=== PATIENT | female | born 2000 | race Asian ===

== ENCOUNTER 2020-11-16 12:24 | Day surgery (SDC) | payer OTHER ==
[~2020-11-16] VITALS: Ht 157.5 cm; Wt 63.5 kg
--- NOTE | 2020-11-16 14:01 | NUR ---
Ambulatory in Day Surgery History, Chart, Medications and Allergies reviewed before start of procedure. Lungs clear T/O to Auscultation. Patient confirms NPO status and agrees with scheduled surgery. PREG TEST NEGATIVE.
--- NOTE | 2020-11-16 16:00 | NUR ---
11/16/20 1600 G[address]i NO ANTIBIOTICS ORDERED.
--- NOTE | 2020-11-16 17:21 | NUR ---
Dressing to procedure site clean, dry, intact with no visible drainage, swelling, erythema or bruising noted.
--- NOTE | 2020-11-16 17:55 | NUR ---
Discharge instructions reviewed with patient. Patient verbalizes understanding. Copy given to patient to take home. Dressing to procedure site clean, dry, intact with no visible drainage, swelling, erythema or bruising noted. Discharged via wheelchair to private car for ride home.
== END 2020-11-16 23:34 | disposition home or self-care (01) ==
LOC: ORSCMMR 12:24
PROVIDERS: Obstetrics & Gynecology
PROC: 0UB14ZZ Excision of Left Ovary, Percutaneous Endoscopic Approach (ICD-10-PCS; principal; 2020-11-16 13:30)
DX: D27.1 Benign neoplasm of left ovary (principal)
CPT/HCPCS: 88305; A9270; J0171; J1100; J1885; J2250; J2405; J2704; J3010; J7120